=== PATIENT | male | born 1975 | race African-American/Black ===

== ENCOUNTER 2018-02-05 10:03 | Emergency (ER) | payer OTHER ==
[~2018-02-05] VITALS: Ht 182.9 cm; Wt 86.2 kg
[2018-02-05 10:11] VITALS: BP 117/75
[2018-02-05] MEDS ORDERED: LIDOCAINE 1% (LOCAL ANESTH.) PF 5ml SDV IJ ONE (11:30)
== END 2018-02-05 11:59 | disposition home or self-care (01) ==
LOC: ER 10:06
DX: S61.012A Laceration without foreign body of left thumb without damage to nail, initial encounter (principal); F17.210 Nicotine dependence, cigarettes, uncomplicated; W45.8XXA Other foreign body or object entering through skin, initial encounter; Y93.89 Activity, other specified; Y92.098 Other place in other non-institutional residence as the place of occurrence of the external cause; Y99.8 Other external cause status
CPT/HCPCS: 12001; 73140